=== PATIENT | male | born 1995 | race Caucasian/White ===

== ENCOUNTER 2019-03-06 11:21 | Emergency (ER) | payer OTHER ==
[~2019-03-06] VITALS: Ht 182.9 cm; Wt 83.9 kg
[2019-03-06] MEDS ORDERED: LAMICTAL200 M1 (11:39)
[2019-03-06] MEDS ORDERED: LITHIUM CARBON450 MG (11:39)
[2019-03-06] MEDS ORDERED: MYDAYIS ER 3737.5 MG (11:40)
[2019-03-06] MEDS ORDERED: WARFARIN 0.5 MG (11:40)
[2019-03-06] MEDS ORDERED: CLONIDINE HCL0.1 M1 (11:40)
== END 2019-03-06 13:06 | disposition home or self-care (01) ==
LOC: ER 11:21
DX: H66.92 Otitis media, unspecified, left ear (principal)